=== PATIENT | male | born 1990 | race Caucasian/White ===

== ENCOUNTER 2019-01-04 11:45 | Emergency (ER) | payer SELFPAY ==
--- NOTE | 2019-01-04 13:25 | UC ---
General HPI - HPI Summary HPI Summary: pt's R foot slipped under a step last pm and was bent. he has ongoing pain and swelling today. - History of Current Complaint Chief Complaint: UCLowerExtremity Stated Complaint: RIGHT FOOT INJURY Time Seen by Provider: 01/04/19 12:28 Hx Obtained From: Patient Onset/Duration: Sudden Onset Timing: Constant Pain Intensity: 8 Aggravating: movement Associated Signs & Symptoms: Negative: Fever, Weakness - Allergy/Home Medications Allergies/Adverse Reactions: Allergies Allergy/AdvReac Type Severity Reaction Status Date / Time No Known Allergies Allergy Verified 01/04/19 12:14 Home Medications: Home Medications NK [No Home Medications Reported] 01/04/19 [History Confirmed 01/04/19] PMH/Surg Hx/FS Hx/Imm Hx Previously Healthy: Yes - Surgical History Surgical History: None - Family History Known Family History: Positive: Non-Contributory - Social History Occupation: Unemployed Alcohol Use: None Substance Use Type: Excessive Caffeine Substance Use Comment - Amount & Last Used: [employer] Smoking Status (MU): Heavy Every Day Tobacco Smoker Type: Cigarettes Review of Systems All Other Systems Reviewed And Are Negative: No Constitutional: Negative: Fever, Chills Skin: Negative: Rash Musculoskeletal: Positive: Edema - R foot. Negative: Decreased ROM Neurological: Negative: Weakness, Paresthesia, Numbness Physical Exam Triage Information Reviewed: Yes Appearance: Well-Appearing Vital Signs: Initial Vital Signs Temp 98 F 01/04/19 12:10 Pulse 97 01/04/19 12:10 Resp 18 01/04/19 12:10 BP 139/92 01/04/19 12:10 Pulse Ox 100 01/04/19 12:10 Vital Signs Reviewed: Yes Cardiovascular: Positive: RRR Musculoskeletal: Positive: Other: - RLE: hip, knee, achilles and ankle without deformity or tenderness and rom intact. R foot with mild swelling and central tenderness, worst on plantar foot. foot has gross s/v/m function. Neurological: Positive: Alert Psychological: Positive: Age Appropriate Behavior Skin Exam: Normal Diagnostics - Radiology No standard instances Radiology Interpretation Completed By: Radiologist - MPRESSION: NO EVIDENCE FOR FRACTURE, IF THE PATIENT'S SYMPTOMS PERSIST RECOMMEND FOLLOW-UP IMAGING. Course/Dx - Differential Dx - Multi-Symptom Differential Diagnoses: Other - no overt fx/dislocation. - Diagnoses Provider Diagnosis: Sprain of foot, right Discharge - Sign-Out/Discharge Documenting (check all that apply): Patient Departure All imaging exams completed and their final reports reviewed: Yes - Discharge Plan Condition: Stable Disposition: HOME Patient Education Materials: Foot Sprain (ED) Referrals: Isidro Vega MD [Medical Doctor] - 5 Days Additional Instructions: use edward and post op shoe until cleared - Billing Disposition and Condition Condition: STABLE Disposition: Home
== END 2019-01-04 13:44 | disposition home or self-care (01) ==
LOC: UCCORT 11:45
DX: S93.601A Unspecified sprain of right foot, initial encounter (principal); X58.XXXA Exposure to other specified factors, initial encounter; Y92.9 Unspecified place or not applicable; F17.210 Nicotine dependence, cigarettes, uncomplicated
CPT/HCPCS: 99203; G0463